=== PATIENT | female | born 1995 | race African-American/Black ===

== ENCOUNTER 2024-05-20 17:34 | Emergency (ER) | payer OTHER, SELFPAY ==
--- NOTE | ~2024-05-20 | XR_ITS ---
EXAM: XR foot LT min 3V DATE: 05/20/2024 18:03 HISTORY: pain . COMPARISON: None available. FINDINGS: Normal mineralization. No fracture or dislocation. No lytic or blastic lesion. Joint space s are maintained. Amorphous calcific deposition adjacent to the lateral aspect of the second metatars al head, may represent calcific tendinitis. No erosion or periosteal change. Soft tissues within norm al limits. IMPRESSION: No acute osseous finding. Reviewed, dictated and finalized at location K. IMPRESSION: No acute osseous finding.
[2024-05-20 17:37] VITALS: BP 113/73; PULSE 91; RESP 20; TEMP 36.6; O2SAT 100
--- NOTE | 2024-05-20 21:33 | ED.GENADULT ---
HPI - General Adult General Chief complaint: Extremity Problem,Nontraumatic Stated complaint: L foot pain without injury Time Seen by Provider: 05/20/24 17:54 History of Present Illness HPI narrative: This is a 28-year-old female presenting with foot pain. Over last 2 weeks patient has developed gradual foot pain just proximal to the 2nd 3rd and 4th toes on her left foot. This so seated with pins and needles in those toes. It is worse with walking. Patient notes that she is on her feet all day at work. She has been taking Motrin 400 mg intermittently with some. No trauma. No fevers or signs of infection. Related Data Allergies Allergy/AdvReac Type Severity Reaction Status Date / Time No Known Allergies Allergy Unverified 02/28/19 19:08 [facility] Social History Social History Smoking status: Never smoker Alcohol intake: never Exam Narrative: APPEARANCE: No apparent distress. Head: atraumatic. EYES: EOMI, NOSE: Atraumatic NECK: Trachea midline RESPIRATORY: No increased rate of breathing CARDIOVASCULAR: RRR, ABDOMINAL: Non-distended MUSCULOSKELETAl: Focal exam of left lower extremity showed mild swelling base of the 2nd and 3rd toes. No infectious changes. Cap refill less than 2 seconds. NEURO: Alert. Moving 4/4 extremities SKIN:: Warm, dry. Normal color PSYCHIATRIC: Normal affect Course Vital Signs Vital signs: Vital Signs Temperature 98 F 05/20/24 17:37 Pulse Rate 91 05/20/24 17:37 Respiratory Rate 20 05/20/24 17:37 Blood Pressure 113/73 05/20/24 17:37 Pulse Oximetry 100 05/20/24 17:37 Oxygen Delivery Room Air 05/20/24 17:37 Temperature 98 F 05/20/24 17:37 Pulse Rate 91 05/20/24 17:37 Respiratory Rate 20 05/20/24 17:37 Blood Pressure 113/73 05/20/24 17:37 Pulse Oximetry 100 05/20/24 17:37 Oxygen Delivery Room Air 05/20/24 17:37 Medical Decision Making [facility] Narrative Medical decision making narrative: -Course: 28-year-old female presenting with foot pain. Presentation consistent with Reyes's neuroma. Patient discharged on Motrin Tylenol, Podiatry follow-up. -DDX includes but is not limited to: Metatarsalgia, Reyes's neuroma, sprain -Independent interpretation of studies: X-ray negative for fracture -Interventions: Motrin Tylenol -Shared decision making / Disposition: Discharged -RX Motrin Tylenol Vital Signs Vital Signs: Vital Signs Temperature 98 F 05/20/24 17:37 Pulse Rate 91 05/20/24 17:37 Respiratory Rate 20 05/20/24 17:37 Blood Pressure 113/73 05/20/24 17:37 Pulse Oximetry 100 05/20/24 17:37 Oxygen Delivery Room Air 05/20/24 17:37 Temperature 98 F 05/20/24 17:37 Pulse Rate 91 05/20/24 17:37 Respiratory Rate 20 05/20/24 17:37 Blood Pressure 113/73 05/20/24 17:37 Pulse Oximetry 100 05/20/24 17:37 Oxygen Delivery Room Air 05/20/24 17:37 Discharge Plan 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 Please wear loose-fitting shoes. 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 Return if you develop severe pain or fevers. Prescriptions: New ibuprofen 800 mg tablet 800 mg PO TID PRN (Reason: pain) 7 Days Qty: 21 0RF acetaminophen 500 mg tablet 1,000 mg PO TID PRN (Reason: gerry) 7 Days Qty: 42 0RF Follow-up/Referrals: Gilmer Briscoe Jr., DPM [Physician] - 1 Week (Reyes Neuroma ) UNKNOWN,DOCTOR [Primary Care Provider] -
[2024-05-20] MEDS: IBUPROFEN 400 MG TABLET 800 MG PO (21:58)
[2024-05-20] MEDS: ACETAMINOPHEN 500 MG TABLET 1000 MG PO (21:58)
== END 2024-05-20 22:05 | disposition home or self-care (01) ==
PROVIDERS: Emergency Provider Emergency Medicine
DX: G57.62 Lesion of plantar nerve, left lower limb (principal)
CPT/HCPCS: 73630; 99283; A9270

== ENCOUNTER 2024-05-23 10:06 | Emergency (ER) | payer OTHER, SELFPAY ==
--- NOTE | 2024-05-23 10:13 | ED.GENADULT ---
HPI - General Adult General Chief complaint: Extremity Injury, Lower Stated complaint: Left Foot Pain Time Seen by Provider: 05/23/24 10:14 Source: patient, RN notes reviewed and old records reviewed Mode of arrival: ambulatory Limitations: no limitations History of Present Illness HPI narrative: 28-year-old female presents to the [facility] requesting a work note. Was seen in the ER for left foot pain at the base of the 2nd metatarsal 2 days ago, x-ray was done. Has a follow-up with Dr. Todd is on the 19 of June. Related Data Home Medications Medication Instructions Recorded Confirmed No Home Medications 05/23/24 05/23/24 Allergies Allergy/AdvReac Type Severity Reaction Status Date / Time No Known Allergies Allergy Verified 05/23/24 10:06 Review of Systems Review of Systems: All systems reviewed & are unremarkable except as noted in HPI and below Constitutional: Constitutional: Reports no additional constitutional complaints Eyes: Eyes: Reports no additional eye complaints ENT: Reports system reviewed and no additional complaints, except as documented Cardiovascular: Cardiovascular: Reports no additional cardiovascular complaints, Denies chest pain and Denies dyspnea Respiratory: Respiratory: Reports no additional respiratory complaints, Denies chest congestion, Denies cough and Denies dyspnea Gastrointestinal: Gastrointestinal: Reports no additional gastrointestinal complaints, Denies abdominal pain, Denies nausea and Denies vomiting Musculoskeletal: Musculoskeletal: Reports as per HPI Integumentary/Breasts: Skin/Breast: Reports system reviewed and no additional complaints, except as docu Neurologic: Reports system reviewed and no additional complaints, except as documented Psychiatric: Psychiatric: Reports no additional psychiatric complaints Allergic/Immunologic: Allergic/Immunologic: Reports no additional allergic/immunologic complaints PMFSH Social History Social History Smoking status: Never smoker Alcohol intake: never Comments At the time of my signature, I reviewed and agree with the nursing past medical, surgical, social, and family history. There is no relevant family history pertinent to the patient complaint. Exam Const: General: cooperative, healthy appearing, comfortable, no acute distress, well developed, alert and well nourished Nutritional Appearance: well nourished Orientation/consciousness: patient oriented x3 Limitations: no limitations HENMT: Head: normal to inspection Ears: hearing grossly normal bilaterally and external ears normal Face/Nose/Sinus: Normal external nose present, Normal nares present, Normal nasal mucous membranes and turbinates present, normal facial exam and face symmetric Face and sinus: normal facial exam and face symmetric Eyes: General: appearance normal, both eyes and all related structures Alignment and Position: alignment normal Periorbital: periorbital findings normal Neck: Neck: normal visual inspection, full ROM and no meningeal signs Chest: Chest palpation & inspection: normal inspection of the chest Resp: Effort & Inspection: normal respiratory effort and able to speak in complete sentences Cardio: Rate: regular rate Skin: General skin exam: normal color and no rashes or lesions noted Lesions: no lesions Rashes: no rashes Trauma: no lacerations or abrasions Wounds: no wounds Neuro: General: patient oriented x3, gait normal, tone normal, moves all extremities and no meningeal signs Cranial nerves: Yes Equal, round and reactive pupils present Cognition (Neuro): normal cognition Speech: normal speech Gait exam (Neuro): Normal gait present Extrem: General: normal to inspection, full ROM, capillary refill normal and normal gait Left lower extremity: foot Details: normal capillary refill, normal to inspection, toes with normal ROM, no edema and vascular exam Details: dors
[2024-05-23 10:14] VITALS: BP 121/76; PULSE 87; RESP 16; TEMP 36.8; O2SAT 100
== END 2024-05-23 10:15 | disposition home or self-care (01) ==
PROVIDERS: Emergency Provider Nurse Practitioner; PCP Physician Assistant
DX: G57.62 Lesion of plantar nerve, left lower limb (principal)
CPT/HCPCS: 99212; G0463